=== PATIENT | male | born 1970 | race Caucasian/White ===

== ENCOUNTER → 2020-05-01 | Outpatient (CLI) | payer OTHER | LOC: SLEEP-COR 01:50 | DX: G47.33 Obstructive sleep apnea (adult) (pediatric) (principal) | CPT/HCPCS: 95810 ==

== ENCOUNTER → 2021-08-25 | Outpatient (CLI) | payer OTHER | LOC: KOH-I 09:16 | DX: M47.26 Other spondylosis with radiculopathy, lumbar region (principal) | CPT/HCPCS: 72100 ==